=== PATIENT | male | born 1960 | race Caucasian/White ===

== ENCOUNTER 2022-11-28 10:52 | Day surgery (SDC) | payer BC ==
[~2022-11-28] VITALS: Ht 172.7 cm; Wt 73.5 kg
[~2022-11-28 10:52] MED LIST: CEFAZOLIN SOD 2 GM in D5W 50 ML IV ONE
[2022-11-28 12:40] VITALS: O2SAT 100
[2022-11-28] MEDS ORDERED: KETOROLAC TROMETHAMINE 30 MG VIAL ONE (12:41)
[2022-11-28] MEDS ORDERED: ONDANSETRON HCL 4 MG/2 ML VIAL ONE (12:41)
[2022-11-28] MEDS ORDERED: BUPIVACAINE /PF 0.25% 30 ML VIAL INJ ONE (12:41)
[2022-11-28] MEDS ORDERED: ROCURONIUM BROMIDE 10 MG/ML (ZEMURON) ONE (12:41)
[2022-11-28] MEDS ORDERED: fentaNYL CITRATE/PF 100 MCG/2 ML AMP ONE (12:41)
[2022-11-28] MEDS ORDERED: LR 1,000 ML IV.SOLN IV ONE (12:41)
[2022-11-28] MEDS ORDERED: NS IRRIG SOLN 1000 ML IR ONE (12:41)
[2022-11-28] MEDS ORDERED: SEVOFLURANE 15 MIN GAS INH ONE (12:41)
[2022-11-28] MEDS ORDERED: PROPOFOL 200MG/ 20ML VIAL (DIPRIVAN) IV ONE (12:41)
[2022-11-28] MEDS ORDERED: LIDOCAINE 2%, 20 ML MDV ONE (12:41)
[2022-11-28] MEDS ORDERED: SUCCINYLCHOLINE CHLORIDE 20 MG/ML(QUELICIN) ONE (12:41)
[2022-11-28] MEDS ORDERED: METOCLOPRAMIDE HCL 10 MG/2 ML VIAL ONE (12:41)
[2022-11-28] MEDS ORDERED: MIDAZOLAM HCL 2 MG/2 ML VIAL (VERSED) ONE (12:41)
[2022-11-28] MEDS ORDERED: NEOSTIGMINE METHYLSULFATE 1 MG/ML, 10 ML VIAL ONE (12:41)
[2022-11-28] MEDS ORDERED: GLYCOPYRROLATE 0.2 MG/ML VIAL ONE (12:41)
[2022-11-28] MEDS ORDERED: ACETAMINOPHEN I.V. 1000 MG 100 ML IV ONE (13:24)
[2022-11-28] MEDS ORDERED: ONDANSETRON HCL 4 MG/2 ML VIAL IVP PRN (13:30)
[2022-11-28] MEDS ORDERED: KETOROLAC TROMETHAMINE 30 MG VIAL IVP PRN (13:30)
[2022-11-28] MEDS ORDERED: HYDROmorphone 2 MG/ML VIAL IVP PRN (13:30)
[2022-11-28] MEDS ORDERED: LR 1,000 ML IV SCH (13:30)
[2022-11-28] MEDS ORDERED: HYDROmorphone 1 MG/ML INJ. CARTRIDGE IVP PRN (13:30)
[2022-11-28 16:46] VITALS: BP_SYST 113; PULSE 52; RESP 18
== END 2022-11-28 16:29 | disposition home or self-care (01) ==
LOC: SDS 10:52 → SMU 10:53 → SDS 16:29
PROVIDERS: ATTEND Surgery
DX: K40.30 Unilateral inguinal hernia, with obstruction, without gangrene, not specified as recurrent (principal); I10 Essential (primary) hypertension; E11.9 Type 2 diabetes mellitus without complications; Z79.899 Other long term (current) drug therapy
CPT/HCPCS: 87081; 49507; 82962; C1781; J3490 ×2; J0690; J1885; J2001; J2765; J3465; J2405; J2704; J0330; J3010; J7060; J7120; J0131; J2710